=== PATIENT | female | born 1935 | race Two or more races ===

== ENCOUNTER 2025-05-03 00:36 | Inpatient (IN) | payer MEDICARE, OTHER ==
[2025-05-03] VITALS (13 sets, daily range): BP systolic 109–159; BP diastolic 38–99; PULSE 68–82; RESP 11–18; TEMP 97.3–98.1; O2SAT 92–100
[~2025-05-03] VITALS: Ht 152.4 cm; Wt 48.8 kg
[2025-05-03 01:05] LABS: Urine Bacteria None Seen /hpf (None Seen)
[2025-05-03 01:09] LABS: Basophils # (auto) 0.1 10 ^3/uL (0-0.2); Basophils % (auto) 0.7 % (0.0-2.0); Eosinophils # (auto) 0.2 10 ^3/uL (0-0.8); Eosinophils % (auto) 2.1 % (0.0-7.0); Hematocrit 45.7 % (36.0-46.0); Hemoglobin 15.3 g/dL (12.2-16.2); Lymphocytes # (auto) 2.9 10 ^3/uL (0.4-5.4); Lymphocytes % (auto) 24.6 % (10.0-50.0); Mean Corpuscular Hemoglobin 27.2 pg (28.0-32.0); Mean Corpuscular Hgb Conc. 33.4 g/dL (32.0-36.0); Mean Corpuscular Volume 81.3 fL (80.0-100.0); Monocytes # (auto) 0.6 10 ^3/uL (0-1.3); Monocytes % (auto) 5.4 % (0.0-12.0); Neutrophils # (auto) 7.8 10 ^3/uL (1.6-8.6); Neutrophils % (auto) 67.2 % (37.0-80.0); Platelet Count (auto) 272 10^3/uL (140-450); Red Blood Cells 5.62 10^6/uL (4.0-5.20); Red Cell Distribution Width 14.5 % (11.8-14.3); White Blood Cell 11.6 10^3/uL (4.4-10.8)
[2025-05-03 01:14] LABS: Urine Blood TRACE /uL (Negative); Urine Clarity Turbid (Clear); Urine Color Colorless (Yellow); Urine Protein, UAD TRACE (Negative); Urine Specific Gravity 1.027 (1.001-1.035); Urine Squamous Epithelial Cell MOD /hpf (<5); Urine Urobilinogen Normal (Negative); Urine WBC 276 /HPF (0-5); Urine WBC Clumps PRESENT /hpf (None Seen)
[2025-05-03 01:32] LABS: Albumin 4.4 g/dL (3.2-4.8); Anion Gap 8 (5-15); Aspartate Aminotransferase 14 U/L (13-40); BUN/Creatinine Ratio 11.2 (10.0-20.0); Bilirubin, Total 0.6 mg/dL (0.2-1.0); Blood Urea Nitrogen 10 mg/dL (9-23); Calcium 9.6 mg/dL (8.7-10.4); Carbon Dioxide 27 mmol/L (20-31); Chloride 102 mmol/L (98-107); Potassium 4.2 mmol/L (3.5-5.1); Sodium 137 mmol/L (136-145); Total Protein 7.4 g/dL (5.7-8.2)
--- NOTE | 2025-05-03 01:38 | DVH ---
CHEST RADIOGRAPH Indication: cp Technique: Single frontal view of the chest was obtained Comparison: None Findings/ IMPRESSION: Right basilar atelectasis versus developing airspace disease.
[2025-05-03 01:46] LABS: Alanine Aminotransferase < 9 U/L (7-40); Alkaline Phosphatase 141 U/L (46-116)
[2025-05-03 01:47] LABS: Glucose 442 mg/dL (74-106)
--- NOTE | 2025-05-03 02:42 | ED.PDOC ---
History of Present Illness HPI Comments 89-year-old female is brought in by daughter for evaluation following isolated episode of chest pain, with associated shortness of breath, an hour prior to arrival. Patient has a reported history of dementia, diabetes, and coronary stents in addition to having similar pain 5 days ago. No further associated s ymptoms during episode was endorsed, such as sweating, dizziness, nausea, or vomiting. Patient had a at home blood glucose reading of 435 and was given 30 units of Lantus at home prior to arrival. Chief Complaint: Chest Pain Time Seen by MD: 00:50 Reviewed Notes: Nurses Notes, Medications, Allergies Allergies: Coded Allergies: NO KNOWN ALLERGIES (Unverified , 05/03/25) Home Meds Reported Medications Atorvastatin Calcium (ATORVASTATIN CALCIUM) 20 Mg Tab, 1 TAB PO QPM, #30 TAB 5 Refills 05/03/25 Information Source: Relative (Child) Mode of Arrival: Ambulatory Severity: Moderate Timing: Hours Duration: Minutes Prehospital treatment: None Review of Systems: REVIEW OF SYSTEMS: No fever, no chills, or fatigue HEENT: No sore throat, no earache, no congestion, no neck pain. Cardiac: No chest pain. No palpitations. Lungs: No shortness of breath, no cough. GI: No nausea, no vomiting, no diarrhea, no constipation, no abdominal pain : No dysuria, frequency, or urgency. No hematuria. Musculoskeletal: No joint pain , no joint swelling, no extremity edema. Skin: No rash, no itching. Neuro: No headache, no dizziness, no weakness Vital Signs Vital Signs Date Time Temp Pulse Resp B/P (MAP) Pulse Ox O2 Delivery O2 Flow Rate FiO2 05/03/25 02:57 82 14 99 Room Air* 0 21 05/03/25 02:27 98.4 146/64 (91) 98.4 Physical Exam General: Awake, alert and oriented. No acute distress. Skin: Skin in warm, dry and intact. Appropriate color for ethnicity. HEENT: The head is normocephalic and atraumatic. Conjunctivae are clear without exudates or hemorrhage. Sclera is non-icteric. EOM are intact. No signs of nystagmus. Eyelids are normal in appearance without swelling or lesions. Oral mucosa is pink and moist Neck: The neck is supple with normal range of motion. No JVD. Cardiac: Heart rate is rapid; rhythm is regular. No murmurs, gallops, or rubs are auscultated. Respiratory: No signs of respiratory distress. Lung sounds are clear in all lobes bilaterally without rales, rhonchi, or wheezes. Abdominal: Abdomen is soft, non-tender without distention, guarding or rigidity. Bowel sounds are present and normoactive in all four quadrants. Extremities: Upper and lower extremities are atraumatic in appearance without deformity or edema. Neurological: The patient is awake, alert and oriented to person, place, and time with normal speech. Speech is clear. There is no facial asymmetry. Psychiatric: Appropriate mood and affect. Good judgement and insight. 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 Was a procedure done?: No EKG EKG #1: Pulse Rate (adult): 112 [place]: Normal Cardiac Rhythm: ST Block: LBBB Hypertrophy: None ST: Normal EKG #2: Pulse Rate (adult): 91 [place]: Normal Cardiac Rhythm: NSR Block: LBBB Hypertrophy: None ST: Normal Differential Dx Considerations may include: Differential diagnoses considered include acute ischemic coronary syndrome, aortic dissection, cardiac tamponade, mediastinitis, pulmonary embolus, pneumothorax, tension pneumothorax, esophageal rupture, coronary artery vasospasm, myocarditis, pericarditis, pneumonia, pulmonary edema, esophageal tear, pancreatitis, aortic stenosis, dilated cardiomyopathy, hypertrophic cardiomyopathy, mitral valve prolapse, malignancy, pleuritis, pneumomediastinum, primary pulmonary hypertension, cholecystitis, esophageal spasm, esophagus, gastritis, GERD, peptic ulcer disease, costochondritis, fibromyalgia, rib fracture, herpes zoster, radicular syndromes, thoracic outlet syndrome, somatization. X-Ray, Labs, Meds, VS Vital Signs Date Time Temp Pulse Resp B/P (MAP) Pulse Ox O2 Delivery O2 Flow Rate FiO2 05/03/25 02:57 82 14 99 Room Air* 0 21 05/03/25 02:42 91 05/03/25 02:27 98.4 82 14 146/64 (91) 99 98.4 05/03/25 01:45 91 05/03/25 00:43 112 05/03/25 00:40 98.4 107 18 169/74 (105) 95 98.4 Lab Test 05/03/25 03:25 05/03/25 01:49 05/03/25 00:55 05/03/25 00:50 Range/Units POC Glucose 306 H 70-106 mg/dl Troponin I High Sensitivity 137 *H 117 *H </=34 ng/L White Blood Count 11.6 H 4.4-10.8 10^3/uL Red Blood Count 5.62 H 4.0-5.20 10^6/uL Hemoglobin 15.3 12.2-16.2 g/dL Hematocrit 45.7 36.0-46.0 % Mean Corpuscular Volume 81.3 80.0-100.0 fL Mean Corpuscular Hemoglobin 27.2 L 28.0-32.0 pg Mean Corpuscular Hemoglobin Concent 33.4 32.0-36.0 g/dL Red Cell Distribution Width 14.5 H 11.8-14.3 % Platelet Count 272 140-450 10^3/uL Mean Platelet Volume 9.0 6.9-10.8 fL Neutrophils (%) (Auto) 67.2 37.0-80.0 % Lymphocytes (%) (Auto) 24.6 10.0-50.0 % Monocytes (%) (Auto) 5.4 0.0-12.0 % Eosinophils (%) (Auto) 2.1 0.0-7.0 % Basophils (%) (Auto) 0.7 0.0-2.0 % Neutrophils # (Auto) 7.8 1.6-8.6 10 ^3/uL Lymphocytes # (Auto) 2.9 0.4-5.4 10 ^3/uL Monocytes # (Auto) 0.6 0-1.3 10 ^3/uL Eosinophils # (Auto) 0.2 0-0.8 10 ^3/uL Basophils # (Auto) 0.1 0-0.2 10 ^3/uL Nucleated Red Blood Cells 0.0 % Prothrombin Time 10.7 9.3-11.8 sec Prothrombin Time INR 1.01 0.9-1.15 Activated Partial Thromboplast Time 26.2 24.5-34.5 SEC Sodium Level 137 136-145 mmol/L Potassium Level 4.2 3.5-5.1 mmol/L Chloride Level 102 98-107 mmol/L Carbon Dioxide Level 27 20-31 mmol/L Anion Gap 8 5-15 Blood Urea Nitrogen 10 9-23 mg/dL Creatinine 0.89 0.550-1.02 mg/dL Glomerular Filtration Rate Calc 62 >90 mL/min BUN/Creatinine Ratio 11.2 10.0-20.0 Serum Glucose 442 *H 74-106 mg/dL Hemoglobin A1c 10.9 H <5.7 % A1C Calcium Level 9.6 8.7-10.4 mg/dL Total Bilirubin 0.6 0.2-1.0 mg/dL Aspartate Amino Transferase (AST) 14 13-40 U/L Alanine Aminotransferase (ALT) < 9 7-40 U/L Alkaline Phosphatase 141 H 46-116 U/L B-Type Natriuretic Peptide 441.81 0-100 pg/mL Total Protein 7.4 5.7-8.2 g/dL Albumin 4.4 3.2-4.8 g/dL Urine Color Colorless Yellow Urine Clarity Turbid H Clear Urine pH 6.0 5.0-9.0 Urine Specific [place] 1.027 1.001-1.035 Urine Protein Trace H Negative Urine Ketones Negative Negative Urine Blood Trace H Negative /uL Urine Nitrite Negative Negative Urine Bilirubin Negative Negative Urine Urobilinogen Normal Negative mg/dL Urine Leukocyte Esterase 3+ Negative /uL Urine RBC 31 0 - 4 /hpf Urine WBC Clumps Present None Seen /hpf Urine Microscopic WBC 276 H 0-5 /HPF Urine Squamous Epithelial Cells Mod <5 /hpf Urine Bacteria None seen None Seen /hpf Urine Glucose 4+ H Normal mg/dL Current Medications Medications (Trade) Dose Ordered Sig/Davion Route Start Time Stop Time Status Last Admin Aspirin 324 mg ONCE ONCE PO 05/03/25 01:00 05/03/25 01:01 DC 05/03/25 02:45 Sodium Chloride 500 ml @ 500 mls/hr Q1H ONCE IV 05/03/25 02:00 05/03/25 02:59 DC 05/03/25 02:43 Heparin Sodium (Porcine) 2,880 units ONCE ONCE IV 05/03/25 02:45 05/03/25 02:46 DC 05/03/25 02:[address] [address] Ph: [phone] DIAGNOSTIC IMAGING Diagnostic Imaging Report : [id number] Signed PATIENT: JOAQUIN JIMENES ACCT: [id number] UNIT: [id number] : 1935 LOC: ER ROOM / BED: / AGE / SEX: 89 / F ADM STATUS: [facility] ER SERVICE ORDERING PHYSICIAN: MICHAEL ESQUIVEL MD PROCEDURE(s): CXR1 - CHEST XRAY 1 VIEW REASON: cp ORDER NUMBER(s): [id number], ACCESSION NUMBER(s): [id number] CHEST RADIOGRAPH Indication: cp Technique: Single frontal view of the chest was obtained Comparison: None Findings/ IMPRESSION: Right basilar atelectasis versus developing airspace disease. ATED BY: MILE KIM DO DICTATED DATE/TIME: 05/03/25135 SIGNED BY: MILE KIM DO SIGNED DATE/TIME: 05/03/25135 CC: Time of 1ST Reevaluation: 01:20 Reevaluation 1ST: Unchanged Patient Education/Counseling: Other (Patient has dementia) Family Education/Counseling: Treatment, Other (Need for admission) Departure 1 Departure Time of Disposition: 02:55 Impression: Primary Impression: Chest pain Additional Impression: NSTEMI (non-ST elevated myocardial infarction) Disposition: ADMITTED INPATIENT Condition: Stable Comments 89-year-old female history of coronary artery disease status post stenting presented to the emergency department with the daughter with chest pain. Serial troponins increasing. EKG shows no STEMI. Heparin bolus and drip initiated in the emergency department. Patient admitted to hospitalist service for further treatment, evaluation and monitoring. Extensive evaluation was performed in attempt to identify or rule out: (See differential diagnosis section) The following tests were ordered, and results were reviewed by me and discussed with patient: (See diagnostic results section) The following test were independently interpreted by me: EKG I reviewed and agreed with the following test results read by other providers: N /A I reviewed the following notes from the pt's past medical encounters: N/A Additional information was gathered from interviewing the following independent historians: Patient's daughter at bedside Discussion of management or test interpretation with external physician/other qualified health resident care director: N/A Addressed one or more chronic illnesses with severe exacerbation, progression, or side effects of treatment: Coronary artery disease, an acute or chronic illness that poses a threat to life or bodily function: NSTEMI Decision regarding hospitalization or escalation of hospital level of care: Risk and benefits of admission for further treatment of patient's condition was considered. Due to patient's current clinical condition, high risk of decline and poor outcome if discharged and need for further inpatient management and monitoring, patient will be admitted to the hospital. Drug therapy requiring intensive monitoring for toxicity: IV heparin Parenteral controlled substances: N/A Decision regarding elective major surgery with identified patient or procedure risk factors: N/A Decision regarding emergency major surgery: N/A Decision not to resuscitate or to de-escalate care because of poor prognosis: N/A Diagnosis or treatment significantly limited by social determinants of health: N/A Critical Care Note Critical Care Time?: No Stability Stability form required: No Heart Score Heart Score: Heart Score Response (Comments) Value History Moderate Suspicious 1 EKG Normal 0 Age >65 2 Risk Factors 1 or 2 risk factors 1 Troponin >3 x's Normal limit 2 Total 6 I personally scribed for MICHAEL ESQUIVEL MD ([email or web address]) on 05/03/25 at 02:42. Electronically submitted by Jorge Luis oMrales ([email or web address]). MICHAEL ESQUIVEL MD May 03, 2025 02:42
[2025-05-03] MEDS: SODIUM CHLORIDE 0.9% 500 ML IV ONE (02:43)
[2025-05-03] MEDS: ASPirin 81 mg TAB PO ONE (02:45)
[2025-05-03] MEDS: HEPARIN SODIUM (PORCINE) 5000 UNITS/ML 1ML VIAL IV ONE (02:46)
[2025-05-03 03:00] LABS: INR 1.01 (0.9-1.15); Partial Thromboplastin Time 26.2 SEC (24.5-34.5); Prothrombin Time 10.7 sec (9.3-11.8)
[2025-05-03] MEDS: cefTRIAXone 1GM/50ML D5W 50 ML IV SCH (03:30)
[2025-05-03] MEDS: FUROSEMIDE 40 MG/4 ML VIAL IV ONE (03:30)
[2025-05-03] MEDS ORDERED: NITROGLYCERIN 0.4 MG SL TAB SL PRN (03:30)
[2025-05-03] MEDS ORDERED: DEXTROSE (50%) 50ML SYRG IV PRN (03:30)
[2025-05-03] MEDS: PANTOPRAZOLE 40 MG/10 ML VIAL INJ IV ONE (03:30)
[2025-05-03] MEDS: HEPARIN DRIP/D5W 100UNITS/ML 250 ML IV SCH (03:45)
[2025-05-03] MEDS ORDERED: MORPHINE SULFATE 4 MG/ML SYR/VIAL IV PRN (04:00)
[2025-05-03] MEDS: ACCU-CHEK COMFORT CURVE STRIP VI SCH (04:00)
--- NOTE | 2025-05-03 04:39 | DVHHPRES ---
History of Present Illness Resident Creating Document: TAYA PETERSON RESIDENT History of Present Illness Patient is a 89-year-old female with a past medical history of dementia, coronary artery disease s/p PCI, congestive heart failure , insulin-dependent type 2 diabetes mellitus, bilateral decreased vision was brought to the ED after she complained of chest pain. Patient complained of chest pain in the left side and substernal reported that her "heart is hurting", nonradiating, occurred when she was at rest and was relieved on medication given in the hospital. Patient reported that while she had the chest pain she was not able to breathe. Patient denied any recent illness, cough, congestion, fever or chills, no sick contacts According to the daughter patient had OR about a year ago following which she underwent a PCI with 1 drug-eluting stent. 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 Heart. Past medical history: As per HPI Past surgical history: PCI with a 1 drug-eluting stent Social history: Patient lives with the daughter and does not smoke, drink alcohol, no drugs Home medications: Entresto 24-260.5 tab b.i.d., clopidogrel, metoprolol succinate 25, spironolactone 25, insulin Lantus 40 units in the morning and 30 units at night Review of Systems Review of Systems Patient is seen and examined at the bedside Denies any chest pain, shortness of breath, leg swelling No fever or chills, no cough Denies dysuria, abdominal pain Allergies: Coded Allergies: NO KNOWN ALLERGIES (Unverified , 05/03/25) Medications Current Medications Medications Dose Ordered Sig/Davion Route Start Time Stop Time Status Last Admin Dose Admin Heparin Sodium/ Dextrose 250 ml @ 5.808 mls/ hr Q24H IV 05/03/25 02:45 UNV Exam Vital Signs Vital Signs Date Time Temp Pulse Resp B/P (MAP) Pulse Ox O2 Delivery O2 Flow Rate FiO2 05/03/25 02:57 82 14 99 Room Air* 0 21 05/03/25 02:27 98.4 146/64 (91) 98.4 Exam Gen - no pallor, no icterus, no cyanosis, no clubbing, no LAD, no edema . Skin - Patients skin is warm and dry. HEENT - normocephalic, atraumatic, moist mucous membranes. Neck - full ROM, no LAD, no JVD Pulmonary - B/L equal breath sounds with minimal basilar crackles, no wheezing, no stridor. cardiovascular - regular S1,S2 heard, grade 3/6 systolic murmur heard at the TY B and the LUSB. capillary refill normal <2 secs. GI - soft, nontender abdomen. no hepatospleenomegaly. Bowel sounds normoactive Neurological - Patient is A/O X 2 . Bilateral upper extremity strength 4/5, bilateral lower extremity strength 4/5, no facial droop, normal speech, no tremor, no sensory deficiets. Labs/Xrays Labs Test 05/03/25 03:25 05/03/25 01:49 05/03/25 00:55 05/03/25 00:50 Range/Units POC Glucose 306 H 70-106 mg/dl Troponin I High Sensitivity 137 *H </=34 ng/L White Blood Count 11.6 H 4.4-10.8 10^3/uL Red Blood Count 5.62 H 4.0-5.20 10^6/uL Hemoglobin 15.3 12.2-16.2 g/dL Hematocrit 45.7 36.0-46.0 % Mean Corpuscular Volume 81.3 80.0-100.0 fL Mean Corpuscular Hemoglobin 27.2 L 28.0-32.0 pg Mean Corpuscular Hemoglobin Concent 33.4 32.0-36.0 g/dL Red Cell Distribution Width 14.5 H 11.8-14.3 % Platelet Count 272 140-450 10^3/uL Mean Platelet Volume 9.0 6.9-10.8 fL Neutrophils (%) (Auto) 67.2 37.0-80.0 % Lymphocytes (%) (Auto) 24.6 10.0-50.0 % Monocytes (%) (Auto) 5.4 0.0-12.0 % Eosinophils (%) (Auto) 2.1 0.0-7.0 % Basophils (%) (Auto) 0.7 0.0-2.0 % Neutrophils # (Auto) 7.8 1.6-8.6 10 ^3/uL Lymphocytes # (Auto) 2.9 0.4-5.4 10 ^3/uL Monocytes # (Auto) 0.6 0-1.3 10 ^3/uL Eosinophils # (Auto) 0.2 0-0.8 10 ^3/uL Basophils # (Auto) 0.1 0-0.2 10 ^3/uL Nucleated Red Blood Cells 0.0 % Prothrombin Time 10.7 9.3-11.8 sec Prothrombin Time INR 1.01 0.9-1.15 Activated Partial Thromboplast Time 26.2 24.5-34.5 SEC Sodium Level 137 136-145 mmol/L Potassium Level 4.2 3.5-5.1 mmol/L Chloride Level 102 98-107 mmol/L Carbon Dioxide Level 27 20-31 mmol/L Anion Gap 8 5-15 Blood Urea Nitrogen 10 9-23 mg/dL Creatinine 0.89 0.550-1.02 mg/dL Glomerular Filtration Rate Calc 62 >90 mL/min BUN/Creatinine Ratio 11.2 10.0-20.0 Serum Glucose 442 *H 74-106 mg/dL Calcium Level 9.6 8.7-10.4 mg/dL Total Bilirubin 0.6 0.2-1.0 mg/dL Aspartate Amino Transferase (AST) 14 13-40 U/L Alanine Aminotransferase (ALT) < 9 7-40 U/L Alkaline Phosphatase 141 H 46-116 U/L B-Type Natriuretic Peptide 441.81 0-100 pg/mL Total Protein 7.4 5.7-8.2 g/dL Albumin 4.4 3.2-4.8 g/dL Urine Color Colorless Yellow Urine Clarity Turbid H Clear Urine pH 6.0 5.0-9.0 Urine Specific [place] 1.027 1.001-1.035 Urine Protein Trace H Negative Urine Ketones Negative Negative Urine Blood Trace H Negative /uL Urine Nitrite Negative Negative Urine Bilirubin Negative Negative Urine Urobilinogen Normal Negative mg/dL Urine Leukocyte Esterase 3+ Negative /uL Urine RBC 31 0 - 4 /hpf Urine WBC Clumps Present None Seen /hpf Urine Microscopic WBC 276 H 0-5 /HPF Urine Squamous Epithelial Cells Mod <5 /hpf Urine Bacteria None seen None Seen /hpf Urine Glucose 4+ H Normal mg/dL Assessment/Plan Assessment/Plan Acute chest pain ?ACS, likely NSTEMI type 1 H/o coronary artery disease s/p PCI about a year ago Possible heart failure with reduced ejection fraction, ?exacerbation - ECG shows T-wave inversions in lead 2 3 AVF, likely LBBB - troponins elevated - PASQUALE 5 points - heart score 6 points - loaded with aspirin and atorvastatin - heparin drip - cardiology consulted - echocardiogram pending - chest x-ray shows pulmonary congestion, on Lasix - on Entresto 0.5 tab b.i.d., metoprolol succinate 25 UTI likely acute cystitis - on ceftriaxone - urine culture pending Uncontrolled insulin-dependent type 2 diabetes mellitus with a hyperglycemia - insulin Lantus 30 units b.i.d. - moderate insulin sliding scale q.4 hours PUD prophylaxis: Protonix DVT prophylaxis: On heparin drip Goals of care discussed with the patient and her daughter for over 20 7 minutes. Full code Time spent: 41 minutes Plan discussed with Dr. Bates Plan discussed with: Patient, Daughter My Orders Orders - TAYA PETERSON RESIDENT Procedure Category Date Status Time Admit ADMIT 05/03/25 Verified 03:27 Nitroglycerin PHA 05/03/25 Verified Sublingual (Ntrostat 03:30 Morphine Sulfate PHA 05/03/25 Verified Injection 03:30 Oxygen By Nasal RT 05/03/25 Verified Cannula 03:27 Stat Ekg For Chest [facility] 05/03/25 Verified Pain 03:27 Notify Md Of Changes [facility] 05/03/25 Verified From Base 03:27 Pie Baker For [facility] 05/03/25 Verified 24 Hours 03:27 Emergency Dysrhythmia [facility] 05/03/25 Verified Protocol 03:27 Rhythm Strips Once [facility] 05/03/25 Verified Every Shift 03:27 Echo 2d Mode Cardiac US 05/03/25 Verified DOP 03:27 Rapid Influenza A&B LAB 05/03/25 Verified 03:27 Covid19 Antigen [facility] 05/03/25 Verified Glucose Blood PHA 05/03/25 Verified (Accu-Chek Comfort 04:00 Moderate Insulin Ss PHA 05/03/25 Verified 04:00 Dextrose 50% Syringe PHA 05/03/25 Verified 03:30 Insulin Lantus PHA 05/03/25 Verified (Glargine) (Lantus) 10:00 Insulin Lantus PHA 05/03/25 Verified (Glargine) (Lantus) 22:00 Ceftriaxone Ivpb PHA 05/03/25 Verified Rocephin 03:30 Urine Bacterial DAWNA 05/03/25 Verified Culture 03:27 Furosemide Injection PHA 05/03/25 Verified (Lasix Injection) 03:30 Sacubitril-Valsartan PHA 05/03/25 Verified (Entresto 24-26 Mg 10:00 Metoprolol Xl PHA 05/03/25 Verified Succinate (Toprol Xl) 10:00 Clopidogrel Bisulfate PHA 05/03/25 Verified (Plavix) 10:00 Furosemide Injection PHA 05/04/25 Verified (Lasix Injection) 06:00 Pantoprazole PHA 05/03/25 Verified (Protonix) 10:00 Pantoprazole PHA 05/03/25 Verified (Protonix) 03:30 * Cardiology Consult CONS 05/03/25 Verified 03:27 Date of Service: May 03, 2025 Billing Provider: FARHAD BATES MD Common Visit Codes: 32073-[id number] INP/OBS CARE (HIGH) Secondary Visit Codes: [id number] CARE PLAN 30 MINUTES TAYA PETERSON RESIDENT May 03, 2025 04:39
[2025-05-03] MEDS: ATORVASTATIN 20 MG TAB PO ONE (04:45)
[2025-05-03] MEDS: InsuLIN REG 1unit/0.01ml Soln (100units/ml) SC SCH ×2 (04:59→16:18)
[2025-05-03 05:25] LABS: Rapid Influenza A Negative (Negative); Rapid Influenza B Negative (Negative)
[2025-05-03 05:26] LABS: COVID19 ANTIGEN SOFIA FIA NEGATIVE (NEGATIVE)
--- NOTE | 2025-05-03 08:26 | DVHCONRES ---
KE STARKS RESIDENT 05/03/25 0826: Date Seen: May 03, 2025 Resident Creating Document: KE STARKS RESIDENT Referring Physician Dr. Erazo Reason for Consultation NSTEMI History of Present Illness Patient is an 89-year-old female with past medical history of dementia, CAD s/p PCI in September 2024, heart failure with moderately reduced ejection fraction 40%, type 2 diabetes insulin dependent, who was brought in by daughter due to chest pain. According to the daughter at bedside, last night on 05/02/2025 patient started complaining of "heart pain" with associated shortness of breath, patient was lying down at the time of onset of chest pain. Per daughter, patient had similar symptoms 1 year ago with arm numbness at the time she was diagnosed with NSTEMI and underwent PCI x1 FABIANO. Patient's daughter reports good compliance with home medication. On review of systems patient denies any f indings. Patient is AO x1 which is her baseline, at baseline patient is ambulatory with a walker. EKG showed diffuse ST depressions, serial troponins were 117, 137, 306, 961. Patient will undergo left heart catheterization today. Past Medical History dementia, CAD s/p PCI in September 2024, heart failure with moderately reduced ejection fraction 40%, type 2 diabetes insulin dependent Past Surgical History PCI in September 2024, right hip replacement Social History Smoking: Denies Alcohol: Denies Drugs: Denies Allergies: Coded Allergies: NO KNOWN ALLERGIES (Unverified , 05/03/25) Home Meds Reported Medications Atorvastatin Calcium (ATORVASTATIN CALCIUM) 20 Mg Tab, 1 TAB PO QPM, #30 TAB 5 Refills 05/03/25 Current Medications Current Medications Medications (Trade) Dose Ordered Sig/Davion Route PRN Reason Start Time Stop Time Status Last Admin Heparin Sodium/ Dextrose 250 ml @ 6 mls/hr Q24H IV 05/03/25 03:45 05/03/25 03:45 Nitroglycerin (Ntrostat Sublingual) 0.4 mg Q5MINP PRN SL FOR CHEST PAIN 05/03/25 03:30 Morphine Sulfate 2 mg Q30M PRN IV FOR CHEST PAIN 05/03/25 04:00 Diagnostic Test (Pha) (Accu-Chek Comfort Curve T) 1 strip IQ4HR 05/03/25 04:00 05/03/25 04:00 Insulin Human Regular (InsuLIN R) IQ4HR SC 05/03/25 04:00 05/03/25 04:59 Dextrose 50 ml UD PRN IV Blood Sugar LESS THAN 60 05/03/25 03:30 Insulin Glargine (Lantus) 30 units DAILY@1000 SC 05/03/25 10:00 Insulin Glargine (Lantus) 30 units HS SC 05/03/25 22:00 Ceftriaxone Sodium 50 ml @ 100 mls/hr DAILY@09 IV 05/03/25 03:30 Sacubitril/ Valsartan (Entresto 24-26 Mg tab) 0.5 tab BID PO 05/03/25 10:00 Metoprolol Succinate (Toprol Xl) 25 mg DAILY PO 05/03/25 10:00 Clopidogrel Bisulfate (Plavix) 75 mg DAILY PO 05/03/25 10:00 Furosemide (Lasix Injection) 40 mg DAILY IV 05/04/25 06:00 Pantoprazole Sodium (Protonix) 40 mg DAILY IV 05/03/25 10:00 Atorvastatin Calcium (Lipitor) 40 mg HS PO 05/03/25 22:00 Review of Systems Patient seen and examined at bedside. Patient is alert and oriented to person only but responding to all questions. Accurate review of systems could not be completed. Patient denied everything. Eyes: No Pain, No Vision change, No Conjunctivae inflammation, No Eyelid inflammation, No Other, No Redness ENT: No Ear pain, No Ear discharge, No Nose pain, No Nose discharge, No Nose congestion, No Mouth pain, No Mouth swelling, No Throat pain, No Throat swelling, No Other Cardiovascular: No Chest Pain, No Palpitations, No Orthopnea, No Paroxysmal No Dyspnea, No Edema, No Lt Headedness, No Other Respiratory: No Cough, No Dry, No Shortness of breath, No SOB with exertion, No Wheezing, No Hemoptysis, No Pleuritic Pain, No Sputum, No Other Gastrointestinal: No Nausea, No Vomiting, No Abdominal Pain, No Diarrhea, No Constipation, No Melena, No Hematochezia, No Other Genitourinary: No Dysuria, No Frequency, No Incontinence, No Hematuria, No Retention, No Other Musculoskeletal: No other, No neck pain, No shoulder pain, No arm pain, No back pain, No hand pain, No leg pain, No foot pain Skin: No Rash, No Lesions, No Jaundice, No Bruising, No Other Vital Signs Vital Signs Date Time Temp Pulse Resp B/P (MAP) Pulse Ox O2 Delivery O2 Flow Rate FiO2 05/03/25 05:53 97.9 68 16 120/99 (106) 92 97.9 05/03/25 02:57 Room Air* 0 21 Physical Exam General Appearance: Cooperative. Well developed. Well nourished. NAD. Moist mucous membranes Head Exam: Normal inspection Neck Exam: Normal inspection. Non-tender. Normal alignment Pulmonary/Respiratory: Chest non-tender. Clear bilateral breath sounds, no crackles, no wheezing. Cardiovascular/Chest: Regular rate and rhythm. Murmur heard. No JVD. Abdominal Exam: Normal bowel sounds. Soft. normal abdomen, no visible veins, Nontender. No hepatospenomegaly. No masses Lower extremities: Negative lower extremity edema Neuro/Mental Status: A&O x1. Coherent. Skin Exam: Normal inspection. Normal color. Warm. Dry Labs/Diagnostic Data Labs Test 05/03/25 04:47 05/03/25 04:40 05/03/25 03:53 05/03/25 00:55 Range/Units POC Glucose 257 H 70-106 mg/dl Influenza Type A Antigen Negative Negative Influenza Type B Antigen Negative Negative SARS-CoV-2 Antigen (Rapid) Negative NEGATIVE Troponin I High Sensitivity 306 *H </=34 ng/L White Blood Count 11.6 H 4.4-10.8 10^3/uL Red Blood Count 5.62 H 4.0-5.20 10^6/uL Hemoglobin 15.3 12.2-16.2 g/dL Hematocrit 45.7 36.0-46.0 % Mean Corpuscular Volume 81.3 80.0-100.0 fL Mean Corpuscular Hemoglobin 27.2 L 28.0-32.0 pg Mean Corpuscular Hemoglobin Concent 33.4 32.0-36.0 g/dL Red Cell Distribution Width 14.5 H 11.8-14.3 % Platelet Count 272 140-450 10^3/uL Mean Platelet Volume 9.0 6.9-10.8 fL Neutrophils (%) (Auto) 67.2 37.0-80.0 % Lymphocytes (%) (Auto) 24.6 10.0-50.0 % Monocytes (%) (Auto) 5.4 0.0-12.0 % Eosinophils (%) (Auto) 2.1 0.0-7.0 % Basophils (%) (Auto) 0.7 0.0-2.0 % Neutrophils # (Auto) 7.8 1.6-8.6 10 ^3/uL Lymphocytes # (Auto) 2.9 0.4-5.4 10 ^3/uL Monocytes # (Auto) 0.6 0-1.3 10 ^3/uL Eosinophils # (Auto) 0.2 0-0.8 10 ^3/uL Basophils # (Auto) 0.1 0-0.2 10 ^3/uL Nucleated Red Blood Cells 0.0 % Prothrombin Time 10.7 9.3-11.8 sec Prothrombin Time INR 1.01 0.9-1.15 Activated Partial Thromboplast Time 26.2 24.5-34.5 SEC Sodium Level 137 136-145 mmol/L Potassium Level 4.2 3.5-5.1 mmol/L Chloride Level 102 98-107 mmol/L Carbon Dioxide Level 27 20-31 mmol/L Anion Gap 8 5-15 Blood Urea Nitrogen 10 9-23 mg/dL Creatinine 0.89 0.550-1.02 mg/dL Glomerular Filtration Rate Calc 62 >90 mL/min BUN/Creatinine Ratio 11.2 10.0-20.0 Serum Glucose 442 *H 74-106 mg/dL Calcium Level 9.6 8.7-10.4 mg/dL Total Bilirubin 0.6 0.2-1.0 mg/dL Aspartate Amino Transferase (AST) 14 13-40 U/L Alanine Aminotransferase (ALT) < 9 7-40 U/L Alkaline Phosphatase 141 H 46-116 U/L B-Type Natriuretic Peptide 441.81 0-100 pg/mL Total Protein 7.4 5.7-8.2 g/dL Albumin 4.4 3.2-4.8 g/dL Test 05/03/25 00:50 Range/Units Urine Color Colorless Yellow Urine Clarity Turbid H Clear Urine pH 6.0 5.0-9.0 Urine Specific Sharon 1.027 1.001-1.035 Urine Protein Trace H Negative Urine Ketones Negative Negative Urine Blood Trace H Negative /uL Urine Nitrite Negative Negative Urine Bilirubin Negative Negative Urine Urobilinogen Normal Negative mg/dL Urine Leukocyte Esterase 3+ Negative /uL Urine RBC 31 0 - 4 /hpf Urine WBC Clumps Present None Seen /hpf Urine Microscopic WBC 276 H 0-5 /HPF Urine Squamous Epithelial Cells Mod <5 /hpf Urine Bacteria None seen None Seen /hpf Urine Glucose 4+ H Normal mg/dL Assessment NSTEMI type 1 History of NSTEMI with PCI to mid left circumflex in September 2024 Heart failure with moderately reduced ejection fraction, EF 40%, RVSP 37 mmHg in September 2024 Dementia with AO x1 at baseline Uncontrolled type 2 diabetes, insulin dependent Acute complicated UTI Severe hypomagnesemia Plan: Echo from September 2024: Moderately reduced EF 40% in a global fashion, grade 1 diastolic dysfunction. [id number] elevated RVSP 37 mmHg. Moderately dilated left atrium. Aortic valve mildly thickened and sclerotic. Mitral valve has severe mitral annular calcification following the posterior annulus, mild mitral valve stenosis with a mean gradient of 6 mmHg. Moderate mitral regurgitation. Mild TR. Continue heparin drip per pharmacy IV Magnesium rider Atorvastatin, plavix Continue metoprolol, Entresto IV Lasix 40mg Patient will undergo left heart catheterization today; details of the procedure with risks and benefits explained to patient's daughter at bedside. Optimize blood glucose control Rest of the management as per primary team Thank you so much for the opportunity to consult on your patient. Cardiology team will follow the patient. In case of any questions or concerns please feel free to reach out. Plan discussed with Dr. Laura Plan discussed with: Patient, Daughter, Other (RN) Visit Coding Cardiology RES Date of Service: May 03, 2025 Billing Provider: MEREDITH LAURA MD Cardiology Common Codes: [id number] INP/OBS CARE (High) MEREDITH LAURA MD 05/03/25 1427: Allergies: Coded Allergies: NO KNOWN ALLERGIES (Unverified , 05/03/25) Home Meds Reported Medications Atorvastatin Calcium (ATORVASTATIN CALCIUM) 20 Mg Tab, 1 TAB PO QPM, #30 TAB 5 Refills 05/03/25 Plan/Recommendation high risk pt , nstemi LBBB on ecg [facility] images personally reviewed pt has some dementia, high risk for procedure family wishes to proceed [facility] dania given acute SD Plan discussed with: Patient KE STARKS RESIDENT May 03, 2025 08:26 MEREDITH LAURA MD May 03, 2025 14:27
[2025-05-03 08:45] LABS: HDL Cholesterol 54 mg/dL (40-59)
[2025-05-03 09:12] LABS: Cholesterol 229 mg/dL (< 200); LDL Cholesterol 146 mg/dL (< 100); Triglycerides 296 mg/dL (< 150)
[2025-05-03 09:13] LABS: Magnesium < 0.5 mg/dL (1.6-2.6)
[2025-05-03] MEDS ORDERED: ATOR20TA50 PO (09:32)
[2025-05-03] MEDS: PANTOPRAZOLE 40 MG/10 ML VIAL INJ IV SCH (10:00)
[2025-05-03] MEDS: METOPROLOL SUCCINATE XL 50 MG TAB PO SCH (10:00)
[2025-05-03] MEDS: SACUBITRIL-VALSARTAN 24mg/26mg TAB PO SCH (10:00)
[2025-05-03] MEDS ORDERED: MAGNESIUM SULFATE 1GM/100ML 100 ML IV SCH (10:00)
[2025-05-03] MEDS: CLOPIDOGREL BISULFATE 75 MG TAB PO SCH (10:00)
[2025-05-03] MEDS ORDERED: INSULIN LANTUS (GLARGINE) 1 /0.01ml (100units/ml) SC SCH ×2 (10:00→22:00)
[2025-05-03] MEDS: MAGNESIUM SULFATE 1GM/100ML 100 ML IV SCH ×2 (10:12→16:00)
[2025-05-03 10:28] LABS: INR 1.04 (0.9-1.15); Partial Thromboplastin Time 47.4 SEC (24.5-34.5)
[2025-05-03] MEDS ORDERED: HEPARIN DRIP/D5W 100UNITS/ML 250 ML IV SCH (10:45)
[2025-05-03] MEDS: IODIXANOL 320MG/ML 100ML BTL IV ONE ×3 (12:22→13:55)
[2025-05-03] MEDS: MIDAZOLAM HCL 2MG/2ML 2ml VIAL (1mg/ml) ONE (12:24)
[2025-05-03] MEDS: LIDOCAINE 2%HCL (LOCAL ANESTH.) INJ 20ML MDV ONE (12:24)
[2025-05-03] MEDS: fentaNYL CITRATE 100 MCG/2 ML VL ONE (12:24)
[2025-05-03] MEDS: VERAPAMIL 2.5MG/ML INJ 2ML VIAL IV ONE (12:24)
--- NOTE | 2025-05-03 12:24 | DVHPNRES ---
Progress Note Date Seen: May 03, 2025 Resident Creating Document: ERIN GROSS RESIDENT Has the PT tested + for MRSA If YES, has PT been informed?: No Medical Necessity Reason Pt with a Central, PICC or Fol: No Subjective Review of Systems Patient is a 89-year-old female with a past medical history of dementia, coronary artery disease s/p PCI, congestive heart failure , insulin-dependent type 2 diabetes mellitus, bilateral decreased vision was brought to the ED after she complained of chest pain. Patient complained of chest pain in the left side and substernal reported that her "heart is hurting", nonradiating, occurred when she was at rest and was relieved on medication given in the hospital. Patient reported that while she had the chest pain she was not able to breathe. Patient denied any recent illness, cough, congestion, fever or chills, no sick contacts According to the daughter patient had AL about a year ago following which she underwent a PCI with 1 drug-eluting stent. Her coordinator of placement is Dr. Heart. Past medical history: As per HPI Past surgical history: PCI with a 1 drug-eluting stent Social history: Patient lives with the daughter and does not smoke, drink alcohol, no drugs Home medications: Entresto 24-260.5 tab b.i.d., clopidogrel, metoprolol succinate 25, spironolactone 25, insulin Lantus 40 units in the morning and 30 units at night 05/03/2025: patient was dx with NSTEMI, troponing were trending high, patient was taken to the catheter builder and PTCA and IVL shockwave lithotripsy to 99% ISR CX stent was done, UTI was also found, ceftriaxone IV is given Objective vital signs Vital Sign Date Time Temp Pulse Resp B/P (MAP) Pulse Ox O2 Delivery O2 Flow Rate FiO2 05/03/25 10:00 79 10 112/52 (72) 96 05/03/25 08:00 98.2 98.2 05/03/25 02:57 Room Air* 0 21 medications Current Medications Medications Dose Ordered Sig/Davion Route Start Time Stop Time Status Last Admin Dose Admin Nitroglycerin 0.4 mg Q5MINP PRN SL 05/03/25 03:30 Diagnostic Test (Pha) 1 strip IQ4HR 05/03/25 04:00 05/03/25 08:00 1 STRIP Dextrose 50 ml UD PRN IV 05/03/25 03:30 Ceftriaxone Sodium 50 ml @ 100 mls/hr DAILY@09 IV 05/03/25 03:30 05/03/25 09:36 100 MLS/HR Sacubitril/ Valsartan 0.5 tab BID PO 05/03/25 10:00 Metoprolol Succinate 25 mg DAILY PO 05/03/25 10:00 Clopidogrel Bisulfate 75 mg DAILY PO 05/03/25 10:00 Furosemide 40 mg DAILY IV 05/04/25 06:00 Pantoprazole Sodium 40 mg DAILY IV 05/03/25 10:00 Atorvastatin Calcium 40 mg HS PO 05/03/25 22:00 Heparin Sodium/ Dextrose 250 ml @ 8 mls/hr Q24H IV 05/03/25 10:45 Examination Gen - no pallor, no icterus, no cyanosis, no clubbing, no LAD, no edema . Skin - Patients skin is warm and dry. HEENT - normocephalic, atraumatic, moist mucous membranes. Neck - full ROM, no LAD, no JVD Pulmonary - B/L equal breath sounds with minimal basilar crackles, no wheezing, no stridor. cardiovascular - regular S1,S2 heard, grade 3/6 systolic murmur heard at the RUSB and the LUSB. capillary refill normal <2 secs. GI - soft, nontender abdomen. no hepatospleenomegaly. Bowel sounds normoactive Neurological - Patient is A/O X 2 . Bilateral upper extremity strength 4/5, bilateral lower extremity strength 4/5, no facial droop, normal speech, no tremor, no sensory deficits. laboratory and microbiology Laboratory Tests 05/03/25 00:55 Test 05/03/25 00:55 Range/Units Serum Glucose 442 *H 74-106 mg/dL Problem List/Assessment/Plan Problem List/Assessment/Plan sp PTCA and IVL shockwave lithotripsy to 99% ISR CX stent Acute chest pain ACS, likely NSTEMI type 1 H/o coronary artery disease s/p PCI about a year ago Possible heart failure with reduced ejection fraction, ?exacerbation -Aspirin and clopidogrel -Metoprolol 25 mg daily - DC heparin drip - cardiology on board - echocardiogram pending - chest x-ray shows pulmonary congestion, on Lasix - on Entresto 0.5 tab b.i.d UTI likely acute cystitis - on ceftriaxone - urine culture pending Uncontrolled insulin-dependent type 2 diabetes mellitus with a hyperglycemia - Due to episode of hypoglycemia and NPO, was dc insulin for today just sliding scale Hypomagnesemia Mg IV PUD prophylaxis: Protonix DVT prophylaxis: Enoxaparin Goals of care discussed with the patient and her daughter for over 20 7 minutes. Full code Time spent: 41 minutes Plan discussed with Dr. Gordillo Plan discussed with: Patient, Other (rn) My Orders My Orders Orders - ERIN GROSS RESIDENT Procedure Category Date Status Time Free T3 LAB 05/03/25 Verified 12:23 Free T4 (Free LAB 05/03/25 Verified Thyroxine) 12:23 Date of Service: May 03, 2025 Billing Provider: LEONCIO GORDILLO MD Common Visit Codes: [id number] INP/OBS CARE(HIGH) ERIN GROSS RESIDENT May 03, 2025 12:24 LEONCIO GORDILLO MD May 04, 2025 14:51
[2025-05-03] MEDS: ANGIOMAX 250 MG VIAL IV ONE (12:25)
[2025-05-03] MEDS: SODIUM CHL 0.9% 50 ML ONE (12:25)
--- NOTE | 2025-05-03 12:26 | ECG ---
[facility] Test Date: 2025-05-03 Test Time: 00:43:53 Pat Name: JOAQUIN FLAHERTY Department: ed Room: 0277T Gender: F Vp Of Product: SANDRITA : 1935 Requested By: MICHAEL ESQUIVEL Order Number: [id number] Reading MD: Senthil Heart Measurements Intervals [place] Rate: 112 P: 77 FL: 130 QRS: 54 QRSD: 154 T: 239 QT: 345 QTc: 471 Interpretive Statements Sinus tachycardia Left bundle branch block Electronically Signed On 05-05-2025 20:56:42 PDT by Senthil Heart Please click the below link to view image of tracing.
--- NOTE | 2025-05-03 12:26 | ECG ---
[facility] Test Date: 2025-05-03 Test Time: 01:45:20 Pat Name: JOAQUIN FLAHERTY Department: ED Room: 0277T Gender: F Oil Boiler: SANDRITA : 1935 Requested By: MICHAEL ESQUIVEL Order Number: [id number] Reading MD: Senthil Heart Measurements Intervals [place] Rate: 91 P: 69 VT: 132 QRS: 47 QRSD: 144 T: 238 QT: 377 QTc: 464 Interpretive Statements Sinus rhythm Left bundle branch block Electronically Signed On 05-05-2025 20:57:12 PDT by Senthil Heart Please click the below link to view image of tracing.
--- NOTE | 2025-05-03 12:26 | ECG ---
[facility] Test Date: 2025-05-03 Test Time: 03:44:31 Pat Name: JOAQUIN FLAHERTY Department: ED Room: 0277T Gender: F Pie Dough Roller: MONICA : 1935 Requested By: MICHAEL ESQUIVEL Order Number: [id number] Reading MD: Senthil Heart Measurements Intervals [place] Rate: 91 P: 110 TX: 183 QRS: 48 QRSD: 147 T: 218 QT: 376 QTc: 463 Interpretive Statements Sinus rhythm Left bundle branch block Electronically Signed On 05-05-2025 20:57:32 PDT by Senthil Heart Please click the below link to view image of tracing.
[2025-05-03 13:20] LABS: Free T3 3.74 pg/mL (2.3-4.2)
[2025-05-03 13:21] LABS: Free T4 (Free Thyroxine) 1.3 ng/dL (0.89-1.76)
--- NOTE | 2025-05-03 13:44 | DVHOP2 ---
Operative Report Operative Report CARDIAC TOOL CRIB LEAD PROCEDURE REPORT [place], [place] Date of Service: 05/03/25 Street Light Wirer: Meredith Laura MD PROCEDURES PERFORMED: Coronary angiogram, left heart catheterization, conscious sedation administration and supervision, less than 15 minutes; fluoroscopy use and interpretation.[id number] mins, PTCA1 vessel, intravasculr lithotripsy 1 vessel, acute SC intervention, US guided vascular access saved to pacs system PREOPERATIVE DIAGNOSES: NSTEMI POSTOP DIAGNOSIS: NSTEMI DESCRIPTION OF PROCEDURE: The patient or appropriate family signed informed consent understanding the risks, benefits and alternatives of the procedure, they wished to proceed. The patient was brought to the cardiac landscape laborer in n.p.o. state. The patient was prepped in a sterile fashion. Sedation was used per cardiac cath protocol. I administered 2 mL of 2% lidocaine to the right wrist. there was no pulse and it was quite weak. With an antegrade front wall puncture. I cannulated the right radial artery using US guidance but couldnt wire it well enouh given heavy calcium and spasm. . SO i changed to Femoral approach and gave 5 cc of lidocaine given to groin. WIth US guidance, i cannulated the RCFA which was veyr weak pulse. the vessel was patent but quite diseased on US. I placed a 6F sheath. angio showed appropriate arteriotomy site but 50% REINFORCED IRONWORKER lesion . Next, a - 6F JR4, JL4 and XB 3 and were used for coronary angiogram and LVEDP measurement and pressure pullback. At the completion of procedure, all guides and wires were removed, and there were no immediate complications. FINDINGS: RCA: Moderate vessel off the right sinus of Valsalva, there is no severe flow limiting stenosis. mild diffuse plaque LEFT MAIN: Moderate size left main, it bifurcates into LAD and circumflex. mild diffuse plaque. CIRCUMFLEX: Moderate caliber vessel coming off the left main . mid CX has a 99% lesion ISR. 50% post stent lesion unchanged from previous cath. LAD: LAD is a moderate caliber vessel coming of the left main. moderate diffuse non critical cad INTERVENTION: We decided to proceed with coronary intervention. I started with a 6F __XB3__ Guide to intubate the LM __. Angiomax bolus and gtt was started. Following this, I decided to wire using an .014 BMW across the culprit lesion with ease. At this time, we performed balloon angioplasty with a _2.5 x 15 mm balloon up to 12 atms with 3 inflations each 15 seconds and then i took a 3.0 x 12 mm balloon by by Tendr IVL balloon up to __2 __ ATMS over __15__ seconds with __10 pulses each for total of 40 pulses__ delivered. Following this, angio showed <10% residual stenosis. PASQUALE pre/post: 2./3 CONCLUSIONS: 1. sp PTCA and IVL shockwave lithotripsy to 99% ISR CX stent PLAN: Aggressive risk factor modification and medical management for the patient. DAPT x 1 year uninterrupted MEREDITH LAURA MD May 03, 2025 13:44
[2025-05-03] MEDS: CLOPIDOGREL BISULFATE 75 MG TAB ONE (13:55)
[2025-05-03] MEDS: MAGNESIUM SULFATE 1GM/100ML 100 ML IV ONE (14:39)
[2025-05-03] MEDS: ATORVASTATIN 20 MG TAB PO SCH (20:01)
[2025-05-03] MEDS: TEMAZEPAM 15 MG CAP PO ONE (21:48)
[2025-05-04 05:00] VITALS: BP 100/49; PULSE 72; RESP 17; TEMP 97.5; O2SAT 95
[2025-05-04] MEDS ORDERED: FUROSEMIDE 40 MG/4 ML VIAL IV SCH (06:00)
[2025-05-04 06:21] LABS: Basophils # (auto) 0 10 ^3/uL (0-0.2); Basophils % (auto) 0.5 % (0.0-2.0); Eosinophils # (auto) 0.2 10 ^3/uL (0-0.8); Eosinophils % (auto) 2.5 % (0.0-7.0); Hematocrit 41.8 % (36.0-46.0); Lymphocytes # (auto) 1.4 10 ^3/uL (0.4-5.4); Lymphocytes % (auto) 17.5 % (10.0-50.0); Mean Corpuscular Hemoglobin 27.2 pg (28.0-32.0); Mean Corpuscular Hgb Conc. 33.4 g/dL (32.0-36.0); Mean Corpuscular Volume 81.2 fL (80.0-100.0); Monocytes # (auto) 0.6 10 ^3/uL (0-1.3); Monocytes % (auto) 7.9 % (0.0-12.0); Neutrophils # (auto) 5.6 10 ^3/uL (1.6-8.6); Neutrophils % (auto) 71.6 % (37.0-80.0); Nucleated Red Blood Cells % 0.1 %; Platelet Count (auto) 236 10^3/uL (140-450); Red Blood Cells 5.15 10^6/uL (4.0-5.20); Red Cell Distribution Width 13.9 % (11.8-14.3); White Blood Cell 7.8 10^3/uL (4.4-10.8)
[2025-05-04 08:00] VITALS: PULSE 69
[2025-05-04 09:00] VITALS: BP 120/70; PULSE 73; RESP 17; TEMP 97.1; O2SAT 94
[2025-05-04 09:18] LABS: Potassium 3.5 mmol/L (3.5-5.1); Sodium 144 mmol/L (136-145)
[2025-05-04 09:19] LABS: Anion Gap 9 (5-15); Calcium 8.8 mg/dL (8.7-10.4); Carbon Dioxide 26 mmol/L (20-31)
[2025-05-04] MEDS: ENOXAPARIN SOD 40 MG/0.4 ML SYRINGE SC SCH (09:24)
[2025-05-04] MEDS: ASPirin 81 mg TAB PO SCH (09:24)
[2025-05-04 09:25] LABS: Blood Urea Nitrogen 8 mg/dL (9-23); Magnesium 2.3 mg/dL (1.6-2.6)
[2025-05-04] MEDS: SPIRONOLACTONE 25 MG TAB PO SCH (09:25)
[2025-05-04 09:26] LABS: Chloride 109 mmol/L (98-107)
[2025-05-04 09:27] LABS: Glucose 45 mg/dL (74-106)
--- NOTE | 2025-05-04 09:30 | DVHPN2 ---
Consult Progress Note Date Seen: May 04, 2025 Subjective Review of Systems: CVS:Normal, RESPIRATORY:Normal, NEURO:Normal Objective vital signs Vital Sign Date Time Temp Pulse Resp B/P (MAP) Pulse Ox O2 Delivery O2 Flow Rate FiO2 05/04/25 07:45 Room Air* 0 21 05/04/25 05:00 97.5 72 17 100/49 (66) 95 97.5 Total Intake and Output 05/03/25 05/03/25 05/04/25 15:00 23:00 07:00 Intake Total 50 ml 790 ml 500 ml Balance 50 ml 790 ml 500 ml medications Current Medications Medications Dose Ordered Sig/Davion Route Start Time Stop Time Status Last Admin Dose Admin Nitroglycerin 0.4 mg Q5MINP PRN SL 05/03/25 03:30 Dextrose 50 ml UD PRN IV 05/03/25 03:30 Cancel Ceftriaxone Sodium 50 ml @ 100 mls/hr DAILY@09 IV 05/03/25 03:30 05/03/25 09:36 100 MLS/HR Sacubitril/ Valsartan 0.5 tab BID PO 05/03/25 10:00 05/03/25 20:01 0.5 TAB Metoprolol Succinate 25 mg DAILY PO 05/03/25 10:00 Clopidogrel Bisulfate 75 mg DAILY PO 05/03/25 10:00 Pantoprazole Sodium 40 mg DAILY IV 05/03/25 10:00 Atorvastatin Calcium 40 mg HS PO 05/03/25 22:00 05/03/25 20:01 40 MG Enoxaparin Sodium 40 mg DAILY SC 05/04/25 10:00 Insulin Human Regular ACHS SC 05/03/25 17:00 05/03/25 19:56 4 UNITS Aspirin 81 mg DAILY PO 05/04/25 10:00 Spironolactone 12.5 mg DAILY PO 05/04/25 10:00 Examination: LUNGS:Normal, CVS:Normal, NEURO:Normal laboratory and microbiology Laboratory Tests 05/04/25 04:08 Test 05/04/25 04:08 Range/Units Serum Glucose Pending Problem List/Assessment/Plan Problem List/Assessment/Plan NSTEMI Type 1 with in-stent restenosis of the LCx status post shockwave lithotripsy Coronary artery disease status post PTCA of the mid LCx on 09/2024 Acute on chronic decompensated HFrEF Ischemic cardiomyopathy Dementia with AO x1 at baseline Uncontrolled type 2 diabetes, insulin dependent Acute complicated UTI Severe hypomagnesemia Assessment/Plan (Dr. Guo) * Transthoracic echocardiogram from September 2024: Moderately reduced EF 40% in a global fashion, grade 1 diastolic dysfunction. [id number] elevated RVSP 37 mmHg. Moderately dilated left atrium. Aortic valve mildly thickened and sclerotic. Mitral valve has severe mitral annular calcification following the posterior annulus, mild mitral valve stenosis with a mean gradient of 6 mmHg. Moderate mitral regurgitation. Mild TR. * Repeat transthoracic echocardiogram reading pending at this time * GDMT for CHF as tolerated. SGLT2i held given frequent UTIs * Dual-antiplatelet therapy and lipid-lowering agent * Close blood glucose level monitoring given frequent hypoglycemic events * Mediterranean diet and risk factor modifications Patient to follow-up with Dr. Heart on 05/14/2025 for echocardiogram results and further management. We will sign off at this time. Thank you for allowing us to participate in this patient's care. Please call if you have any questions or concerns. This medical document was created using an electronic medical record system with voice recognition software and computerized dictation system. Although this document has been carefully reviewed, there might still be some phonetic and typographical errors. Occasional wrong-word or ``sound-alike substitutions may have occurred due to the inherent limitations of voice recognition software. These areas are purely typographical due to imperfections of the software programs and do not reflect any compromise in the patient's medical care. Please read the chart carefully and recognize, using context, where these substitutions have occurred. Plan discussed with: Patient, Other Date of Service: May 04, 2025 Billing Provider: ERIS BARRETO Cardiology Common Codes: [id number] INP/OBS CARE(Mod) ERIS BARRETO May 04, 2025 09:30
[2025-05-04] MEDS: POTASSIUM CHL 20 Meq TABLET PO ONE (11:01)
[2025-05-04] MEDS: InsuLIN REG 1unit/0.01ml Soln (100units/ml) SC ONE (11:33)
--- NOTE | 2025-05-04 11:39 | DVHSR ---
APPROVED REPORT EXAM: LIMITED Two-dimensional and M-mode echocardiogram with Doppler and color Doppler. Blood Pressure: 120/99 mmHg INDICATION LV assessment RISK FACTORS Height: 5'0", Weight: 106 DIMENSIONS LVDd (3.8-5.7cm)LA (2D)4.1 (1.9-4.0cm)Aortic Root (2.0-3.7cm) EF (%) 26.0 (55-70%)Rt. Atrium4.2 (1.9-4.0cm)Asc. Aorta cm Mitral Valve MitralMitral Stenosis E wave1.44m/sMV Mean GR.6mmHg A wave1.64m/sMV Peak GR.12mmHg E/A ratio0.92D MVAcm2 DECEL [id number] 1/2 Cetp03lp IVRTmsDop MVA2.48cm2 Aortic Valve Aortic ValveAortic Stenosis V10.76m/Wayne Mean GR.9mmHg V21.93m/Wayne Peak GR.15mmHg LVOT Diameter1.9 (1.8-2.4cm)Doppler AVA1.12cm2 Tricuspid Valve TR Velocity3.03m/s [id number] Other Information Quality : Technically LimitedRhythm : Technically limited study due to body habitus. Conclusion lvef 30% dilated LV moderate mitral stenosis, mean gradient of 6 mmgh sever MAC moderate to severe mitral regurg noted aortic sclerosis
--- NOTE | 2025-05-04 15:31 | DVHPNRES ---
Progress Note Date Seen: May 04, 2025 Resident Creating Document: ERIN GROSS RESIDENT Has the PT tested + for MRSA If YES, has PT been informed?: No Medical Necessity Reason Pt with a Central, PICC or Fol: No Subjective Review of Systems Patient is a 89-year-old female with a past medical history of dementia, coronary artery disease s/p PCI, congestive heart failure , insulin-dependent type 2 diabetes mellitus, bilateral decreased vision was brought to the ED after she complained of chest pain. Patient complained of chest pain in the left side and substernal reported that her "heart is hurting", nonradiating, occurred when she was at rest and was relieved on medication given in the hospital. Patient reported that while she had the chest pain she was not able to breathe. Patient denied any recent illness, cough, congestion, fever or chills, no sick contacts According to the daughter patient had PA about a year ago following which she underwent a PCI with 1 drug-eluting stent. Her healthcare financial analyst is Dr. Heart. Past medical history: As per HPI Past surgical history: PCI with a 1 drug-eluting stent Social history: Patient lives with the daughter and does not smoke, drink alcohol, no drugs Home medications: Entresto 24-260.5 tab b.i.d., clopidogrel, metoprolol succinate 25, spironolactone 25, insulin Lantus 40 units in the morning and 30 units at night 05/03/2025: patient was dx with NSTEMI, troponing were trending high, patient was taken to the factory laborer and PTCA and IVL shockwave lithotripsy to 99% ISR CX stent was done, UTI was also found, ceftriaxone IV is given 05/04/2025: Today am glucose 45 but later during the day glucose 361, we are going to restart half the dose she is using at home: lantus 15 ui Objective vital signs Vital Sign Date Time Temp Pulse Resp B/P (MAP) Pulse Ox O2 Delivery O2 Flow Rate FiO2 05/04/25 09:28 83 120/70 05/04/25 09:00 97.1 17 94 97.1 05/04/25 07:45 Room Air* 0 21 Total Intake and Output 05/03/25 05/03/25 05/04/25 15:00 23:00 07:00 Intake Total 50 ml 790 ml 500 ml Balance 50 ml 790 ml 500 ml medications Current Medications Medications Dose Ordered Sig/Davion Route Start Time Stop Time Status Last Admin Dose Admin Nitroglycerin 0.4 mg Q5MINP PRN SL 05/03/25 03:30 Dextrose 50 ml UD PRN IV 05/03/25 03:30 Cancel Ceftriaxone Sodium 50 ml @ 100 mls/hr DAILY@09 IV 05/03/25 03:30 05/04/25 09:24 100 MLS/HR Sacubitril/ Valsartan 0.5 tab BID PO 05/03/25 10:00 05/04/25 09:28 0.5 TAB Metoprolol Succinate 25 mg DAILY PO 05/03/25 10:00 05/04/25 09:28 25 MG Clopidogrel Bisulfate 75 mg DAILY PO 05/03/25 10:00 05/04/25 09:25 75 MG Pantoprazole Sodium 40 mg DAILY IV 05/03/25 10:00 05/04/25 09:24 40 MG Atorvastatin Calcium 40 mg HS PO 05/03/25 22:00 05/03/25 20:01 40 MG Enoxaparin Sodium 40 mg DAILY SC 05/04/25 10:00 05/04/25 09:24 40 MG Insulin Human Regular ACHS SC 05/03/25 17:00 05/03/25 19:56 4 UNITS Aspirin 81 mg DAILY PO 05/04/25 10:00 05/04/25 09:24 81 MG Spironolactone 12.5 mg DAILY PO 05/04/25 10:00 05/04/25 09:25 12.5 MG Examination Gen - no pallor, no icterus, no cyanosis, no clubbing, no LAD, no edema . Skin - Patients skin is warm and dry. HEENT - normocephalic, atraumatic, moist mucous membranes. Neck - full ROM, no LAD, no JVD Pulmonary - B/L equal breath sounds with minimal basilar crackles, no wheezing, no stridor. cardiovascular - regular S1,S2 heard, grade 3/6 systolic murmur heard at the RUSB and the LUSB. capillary refill normal <2 secs. GI - soft, nontender abdomen. no hepatospleenomegaly. Bowel sounds normoactive Neurological - Patient is A/O X 2 . Bilateral upper extremity strength 4/5, bilateral lower extremity strength 4/5, no facial droop, normal speech, no tremor, no sensory deficits. laboratory and microbiology Laboratory Tests 05/04/25 04:08 Test 05/04/25 04:08 Range/Units Serum Glucose 45 *L 74-106 mg/dL Microbiology Date/Time Source Procedure Growth Status 05/03/25 00:50 Urine - Midstream Clean Catch Urine Culture - Preliminary Resulted Problem List/Assessment/Plan Problem List/Assessment/Plan sp PTCA and IVL shockwave lithotripsy to 99% ISR CX stent Acute chest pain ACS, likely NSTEMI type 1 H/o coronary artery disease s/p PCI about a year ago Possible heart failure with reduced ejection fraction, ?exacerbation -Aspirin and clopidogrel -Metoprolol 25 mg daily - cardiology on board - echocardiogram: lvef 30%, dilated LV, moderate mitral stenosis, severe MAC, moderate to severe mitral regurg noted - on Entresto 0.5 tab b.i.d UTI likely acute cystitis - on ceftriaxone - urine culture: contamination Uncontrolled insulin-dependent type 2 diabetes mellitus with a hyperglycemia Today am glucose 45 but later during the day glucose 361, we are going to restart half the dose she is using at home: lantus 15 ui mild ISS please check sugars every 4h Hypomagnesemia Mg IV given PUD prophylaxis: Protonix DVT prophylaxis: Enoxaparin Goals of care discussed with the patient and her daughter for over 20 7 minutes. Full code Time spent: 41 minutes Plan discussed with Dr. Gordillo Plan discussed with: Patient, Other (rn) My Orders My Orders Orders - ERIN GROSS Procedure Category Date Status Time Enoxaparin Sodium PHA 05/04/25 In Process (Lovenox) 10:00 Insulin R (Human) PHA 05/03/25 In Process (Insulin R) 17:00 Date of Service: May 04, 2025 Billing Provider: LEONCIO GORDILLO MD Common Visit Codes: [id number] INP/OBS CARE(HIGH) ERIN GROSS RESIDENT May 04, 2025 15:31 LEONCIO GORDILLO MD May 06, 2025 11:47
[2025-05-04] MEDS ORDERED: INSLANTI SC (18:14)
[2025-05-04] MEDS ORDERED: DEXTROSE (50%) 50ML SYRG IV PRN (18:15)
[2025-05-04] MEDS: ACCU-CHEK COMFORT CURVE STRIP VI SCH (19:50)
[2025-05-04] MEDS: InsuLIN REG 1unit/0.01ml Soln (100units/ml) SC SCH (19:54)
[2025-05-04 20:00] VITALS: PULSE 72; PULSE 76; RESP 17; O2SAT 99
[2025-05-04 21:00] VITALS: BP 123/47; PULSE 76; RESP 17; TEMP 98.2; O2SAT 97
[2025-05-04] MEDS: MELATONIN 5 MG TAB PO ONE (22:52)
[2025-05-04] MEDS: INSULIN LANTUS (GLARGINE) 1 /0.01ml (100units/ml) SC SCH (22:53)
[2025-05-05] VITALS (7 sets, daily range): BP systolic 97–111; BP diastolic 39–66; PULSE 64–79; RESP 16–18; TEMP 97.6–98.3; O2SAT 96–99
[2025-05-05 06:32] LABS: Alanine Aminotransferase < 9 U/L (7-40); Albumin 3.6 g/dL (3.2-4.8); Alkaline Phosphatase 95 U/L (46-116); Anion Gap 9 (5-15); Aspartate Aminotransferase 14 U/L (13-40); BUN/Creatinine Ratio 21.8 (10.0-20.0); Blood Urea Nitrogen 17 mg/dL (9-23); Calcium 9.1 mg/dL (8.7-10.4); Carbon Dioxide 25 mmol/L (20-31); Chloride 106 mmol/L (98-107); Glucose 153 mg/dL (74-106); Potassium 4.3 mmol/L (3.5-5.1); Sodium 140 mmol/L (136-145); Total Protein 5.8 g/dL (5.7-8.2)
[2025-05-05 06:33] LABS: Bilirubin, Total 0.8 mg/dL (0.2-1.0)
[2025-05-05] MEDS: INSULIN LANTUS (GLARGINE) 1 /0.01ml (100units/ml) SC SCH (11:58)
--- NOTE | 2025-05-05 15:44 | DVHPNRES ---
Progress Note Date Seen: May 05, 2025 Resident Creating Document: ERIN GROSS RESIDENT Has the PT tested + for MRSA If YES, has PT been informed?: No Medical Necessity Reason Pt with a Central, PICC or Fol: No Subjective Review of Systems Patient is a 89-year-old female with a past medical history of dementia, coronary artery disease s/p PCI, congestive heart failure , insulin-dependent type 2 diabetes mellitus, bilateral decreased vision was brought to the ED after she complained of chest pain. Patient complained of chest pain in the left side and substernal reported that her "heart is hurting", nonradiating, occurred when she was at rest and was relieved on medication given in the hospital. Patient reported that while she had the chest pain she was not able to breathe. Patient denied any recent illness, cough, congestion, fever or chills, no sick contacts According to the daughter patient had NE about a year ago following which she underwent a PCI with 1 drug-eluting stent. Her visual artist is Dr. Heart. Past medical history: As per HPI Past surgical history: PCI with a 1 drug-eluting stent Social history: Patient lives with the daughter and does not smoke, drink alcohol, no drugs Home medications: Entresto 24-260.5 tab b.i.d., clopidogrel, metoprolol succinate 25, spironolactone 25, insulin Lantus 40 units in the morning and 30 units at night 05/03/2025: patient was dx with NSTEMI, troponing were trending high, patient was taken to the slab miller operator and PTCA and IVL shockwave lithotripsy to 99% ISR CX stent was done, UTI was also found, ceftriaxone IV is given 05/04/2025: Today am glucose 45 but later during the day glucose 361, we are going to restart half the dose she is using at home: lantus 15 ui 05/05/2025: hypoglycemia am again, Dr Valdez, cage tender, consulted, he recomended: lantus 8ui am, lispro 3 tid, lispro moderate sliding scale Objective vital signs Vital Sign Date Time Temp Pulse Resp B/P (MAP) Pulse Ox O2 Delivery O2 Flow Rate FiO2 05/05/25 13:00 98.0 65 16 110/39 (62) 98 98.0 05/05/25 08:02 Room Air* 0 21 Total Intake and Output 05/04/25 05/04/25 05/05/25 15:00 23:00 07:00 Intake Total 50 ml 350 ml Balance 50 ml 350 ml medications Current Medications Medications Dose Ordered Sig/Davion Route Start Time Stop Time Status Last Admin Dose Admin Nitroglycerin 0.4 mg Q5MINP PRN SL 05/03/25 03:30 Dextrose 50 ml UD PRN IV 05/03/25 03:30 Cancel Ceftriaxone Sodium 50 ml @ 100 mls/hr DAILY@09 IV 05/03/25 03:30 05/05/25 09:28 100 MLS/HR Sacubitril/ Valsartan 0.5 tab BID PO 05/03/25 10:00 05/05/25 09:26 0.5 TAB Metoprolol Succinate 25 mg DAILY PO 05/03/25 10:00 05/05/25 09:27 25 MG Clopidogrel Bisulfate 75 mg DAILY PO 05/03/25 10:00 05/05/25 09:27 75 MG Pantoprazole Sodium 40 mg DAILY IV 05/03/25 10:00 05/05/25 09:26 40 MG Atorvastatin Calcium 40 mg HS PO 05/03/25 22:00 05/04/25 22:00 40 MG Enoxaparin Sodium 40 mg DAILY SC 05/04/25 10:00 05/05/25 09:26 40 MG Aspirin 81 mg DAILY PO 05/04/25 10:00 05/05/25 09:28 81 MG Spironolactone 12.5 mg DAILY PO 05/04/25 10:00 05/05/25 09:27 12.5 MG Diagnostic Test (Pha) 1 strip IQ4HR 05/04/25 20:00 05/05/25 11:56 1 STRIP Dextrose 50 ml UD PRN IV 05/04/25 18:15 Insulin Human Lispro give on top of stand... AC SC 05/05/25 17:00 Insulin Human Lispro 3 units AC SC 05/05/25 17:00 Insulin Glargine 8 units QAM SC 05/06/25 07:00 Examination Gen - no pallor, no icterus, no cyanosis, no clubbing, no LAD, no edema . Skin - Patients skin is warm and dry. HEENT - normocephalic, atraumatic, moist mucous membranes. Neck - full ROM, no LAD, no JVD Pulmonary - B/L equal breath sounds with minimal basilar crackles, no wheezing, no stridor. cardiovascular - regular S1,S2 heard, grade 3/6 systolic murmur heard at the RUSB and the LUSB. capillary refill normal <2 secs. GI - soft, nontender abdomen. no hepatospleenomegaly. Bowel sounds normoactive Neurological - Patient is A/O X 2 . Bilateral upper extremity strength 4/5, bilateral lower extremity strength 4/5, no facial droop, normal speech, no tremor, no sensory deficits. laboratory and microbiology Laboratory Tests 05/05/25 05:22 05/04/25 04:08 Test 05/05/25 05:22 Range/Units Serum Glucose 153 H 74-106 mg/dL Microbiology Date/Time Source Procedure Growth Status 05/03/25 00:50 Urine - Midstream Clean Catch Urine Culture - Final Complete Problem List/Assessment/Plan Problem List/Assessment/Plan sp PTCA and IVL shockwave lithotripsy to 99% ISR CX stent Acute chest pain ACS, likely NSTEMI type 1 H/o coronary artery disease s/p PCI about a year ago Possible heart failure with reduced ejection fraction, ?exacerbation -Aspirin and clopidogrel -Metoprolol 25 mg daily - cardiology on board - echocardiogram: lvef 30%, dilated LV, moderate mitral stenosis, severe MAC, moderate to severe mitral regurg noted - on Entresto 0.5 tab b.i.d UTI likely acute cystitis - on ceftriaxone - urine culture: contamination Uncontrolled insulin-dependent type 2 diabetes mellitus with a hyperglycemia Dr Valdez, cage tender, consulted, he recommended: lantus 8ui am, lispro 3 tid, lispro moderate sliding scale please check sugars every 4h Hypomagnesemia Mg IV given PUD prophylaxis: Protonix DVT prophylaxis: Enoxaparin Goals of care discussed with the patient and her daughter for over 20 7 minutes. Full code Time spent: 41 minutes Plan discussed with Dr. Childs Plan discussed with: Patient, Other (rn) My Orders My Orders Orders - ERIN GROSS Procedure Category Date Status Time Glucose Blood PHA 05/04/25 In Process (Accu-Chek Comfort 20:00 Dextrose 50% Syringe PHA 05/04/25 In Process 18:15 * Endocrinology CONS 05/05/25 Transmitted Consult 11:13 Date of Service: May 05, 2025 Billing Provider: LEONCIO CHILDS MD Common Visit Codes: [id number] INP/OBS CARE(HIGH) ERIN GROSS RESIDENT May 05, 2025 15:44 LEONCIO CHILDS MD May 06, 2025 11:56
[2025-05-05] MEDS: INSULIN LISPRO (HUMAN) 100 UNITS/ML ML SC SCH ×2 (17:00→17:02)
[2025-05-05] MEDS: clonazePAM 0.5 MG TAB PO ONE (22:47)
[2025-05-06 01:00] VITALS: BP 99/27; PULSE 79; RESP 16; TEMP 97.5; O2SAT 94
[2025-05-06 05:00] VITALS: BP 104/44; PULSE 75; RESP 17; TEMP 97.6; O2SAT 97
[2025-05-06] MEDS: INSULIN LANTUS (GLARGINE) 1 /0.01ml (100units/ml) SC SCH (07:54)
[2025-05-06 08:00] VITALS: PULSE 67
[2025-05-06 08:47] VITALS: BP 113/52; PULSE 79; RESP 18; TEMP 97.5; O2SAT 95
[2025-05-06 11:08] LABS: Anion Gap 10 (5-15); Carbon Dioxide 24 mmol/L (20-31); Potassium 4.1 mmol/L (3.5-5.1); Sodium 142 mmol/L (136-145)
[2025-05-06 11:10] LABS: Calcium 8.8 mg/dL (8.7-10.4)
[2025-05-06] MEDS ORDERED: CLOP75TA70 PO (11:13)
[2025-05-06] MEDS ORDERED: ATOR20TA50 PO (11:13)
[2025-05-06] MEDS ORDERED: METO-6 PO (11:13)
[2025-05-06] MEDS ORDERED: SPIR25TA PO (11:13)
[2025-05-06] MEDS ORDERED: ASPI-325 PO (11:13)
[2025-05-06] MEDS ORDERED: INSU1INJ19 SC (11:13)
[2025-05-06] MEDS ORDERED: SACU1TAB PO (11:13)
[2025-05-06] MEDS ORDERED: INSU100I4 SC (11:13)
[2025-05-06 11:14] LABS: BUN/Creatinine Ratio 24.6 (10.0-20.0); Blood Urea Nitrogen 15 mg/dL (9-23); Glucose 75 mg/dL (74-106)
[2025-05-06 11:16] LABS: Chloride 108 mmol/L (98-107)
[2025-05-06] MEDS: ACCU-CHEK COMFORT CURVE STRIP VI SCH (11:21)
[2025-05-06 11:44] VITALS: BP 113/52
--- NOTE | 2025-05-06 18:00 | DVHDSRES ---
Discharge Summary Date of Admission Resident Creating Document: ROJAS ERIN Richards RESIDENT May 03, 2025 at 03:27 Date of Discharge: May 06, 2025 Admitting Diagnosis sp PTCA and IVL shockwave lithotripsy to 99% ISR CX stent Labs/Diagnostic Data: Laboratory Results Test 05/06/25 11:08 05/06/25 08:02 05/05/25 05:22 05/04/25 04:08 POC Glucose 370 mg/dl (70-106) Sodium Level 142 mmol/L (136-145) Potassium Level 4.1 mmol/L (3.5-5.1) Chloride Level 108 mmol/L (98-107) Carbon Dioxide Level 24 mmol/L (20-31) Anion Gap 10 (5-15) Blood Urea Nitrogen 15 mg/dL (9-23) Creatinine 0.61 mg/dL (0.550-1.02) Glomerular Filtration Rate Calc 85 mL/min (>90) BUN/Creatinine Ratio 24.6 (10.0-20.0) Serum Glucose 75 mg/dL (74-106) Calcium Level 8.8 mg/dL (8.7-10.4) Total Bilirubin 0.8 mg/dL (0.2-1.0) Aspartate Amino Transferase (AST) 14 U/L (13-40) Alanine Aminotransferase (ALT) < 9 U/L (7-40) Alkaline Phosphatase 95 U/L (46-116) Total Protein 5.8 g/dL (5.7-8.2) Albumin 3.6 g/dL (3.2-4.8) White Blood Count 7.8 10^3/uL (4.4-10.8) Red Blood Count 5.15 10^6/uL (4.0-5.20) Hemoglobin 14.0 g/dL (12.2-16.2) Hematocrit 41.8 % (36.0-46.0) Mean Corpuscular Volume 81.2 fL (80.0-100.0) Mean Corpuscular Hemoglobin 27.2 pg (28.0-32.0) Mean Corpuscular Hemoglobin Concent 33.4 g/dL (32.0-36.0) Red Cell Distribution Width 13.9 % (11.8-14.3) Platelet Count 236 10^3/uL (140-450) Mean Platelet Volume 9.4 fL (6.9-10.8) Neutrophils (%) (Auto) 71.6 % (37.0-80.0) Lymphocytes (%) (Auto) 17.5 % (10.0-50.0) Monocytes (%) (Auto) 7.9 % (0.0-12.0) Eosinophils (%) (Auto) 2.5 % (0.0-7.0) Basophils (%) (Auto) 0.5 % (0.0-2.0) Neutrophils # (Auto) 5.6 10 ^3/uL (1.6-8.6) Lymphocytes # (Auto) 1.4 10 ^3/uL (0.4-5.4) Monocytes # (Auto) 0.6 10 ^3/uL (0-1.3) Eosinophils # (Auto) 0.2 10 ^3/uL (0-0.8) Basophils # (Auto) 0 10 ^3/uL (0-0.2) Nucleated Red Blood Cells 0.1 % Magnesium Level 2.3 mg/dL (1.6-2.6) Test 05/03/25 09:58 05/03/25 08:42 05/03/25 04:40 05/03/25 03:53 Prothrombin Time 11.0 sec (9.3-11.8) Prothrombin Time INR 1.04 (0.9-1.15) Activated Partial Thromboplast Time 47.4 SEC (24.5-34.5) Troponin I High Sensitivity 961 ng/L (</=34) Free Thyroxine (T4) Calculated 1.30 ng/dL (0.89-1.76) Free Triiodothyronine (T3) pg/mL 3.74 pg/mL (2.3-4.2) Influenza Type A Antigen Negative (Negative) Influenza Type B Antigen Negative (Negative) SARS-CoV-2 Antigen (Rapid) Negative (NEGATIVE) Triglycerides Level 296 mg/dL (< 150) Cholesterol Level 229 mg/dL (< 200) LDL Cholesterol 146 mg/dL (< 100) HDL Cholesterol 54 mg/dL (40-59) Thyroid Stimulating Hormone (TSH) 6.34 uIU/mL (0.55-4.78) Test 05/03/25 00:55 05/03/25 00:50 Hemoglobin A1c 10.9 % A1C (<5.7) B-Type Natriuretic Peptide 441.81 pg/mL (0-100) Urine Color Colorless (Yellow) Urine Clarity Turbid (Clear) Urine pH 6.0 (5.0-9.0) Urine Specific [place] 1.027 (1.001-1.035) Urine Protein Trace (Negative) Urine Ketones Negative (Negative) Urine Blood Trace /uL (Negative) Urine Nitrite Negative (Negative) Urine Bilirubin Negative (Negative) Urine Urobilinogen Normal mg/dL (Negative) Urine Leukocyte Esterase 3+ /uL (Negative) Urine RBC 31 /hpf (0 - 4) Urine WBC Clumps Present /hpf (None Seen) Urine Microscopic WBC 276 /HPF (0-5) Urine Squamous Epithelial Cells Mod /hpf (<5) Urine Bacteria None seen /hpf (None Seen) Urine Glucose 4+ mg/dL (Normal) Other Laboratory Tests 05/06/25 08:02 05/04/25 04:08 Brief Hx & Hospital Course: Patient is a 89-year-old female with a past medical history of dementia, coronary artery disease s/p PCI, congestive heart failure , insulin-dependent type 2 diabetes mellitus, bilateral decreased vision was brought to the ED after she complained of chest pain. Patient complained of chest pain in the left side and substernal reported that her "heart is hurting", nonradiating, occurred when she was at rest and was relieved on medication given in the hospital. Patient reported that while she had the chest pain she was not able to breathe. Patient denied any recent illness, cough, congestion, fever or chills, no sick contacts According to the daughter patient had NE about a year ago following which she underwent a PCI with 1 drug-eluting stent. Her engineering mechanic is Dr. Heart. Past medical history: As per HPI Past surgical history: PCI with a 1 drug-eluting stent Social history: Patient lives with the daughter and does not smoke, drink alcohol, no drugs Home medications: Entresto 24-260.5 tab b.i.d., clopidogrel, metoprolol succinate 25, spironolactone 25, insulin Lantus 40 units in the morning and 30 units at night 05/03/2025: patient was dx with NSTEMI, troponing were trending high, patient was taken to the mushroom laborer and PTCA and IVL shockwave lithotripsy to 99% ISR CX stent was done, UTI was also found, ceftriaxone IV is given 05/04/2025: Today am glucose 45 but later during the day glucose 361, we are going to restart half the dose she is using at home: lantus 15 ui 05/05/2025: hypoglycemia am again, Dr Valdez, soda fountain clerk, consulted, he recomended: lantus 8ui am, lispro 3 tid, lispro moderate sliding scale 05/06/2025: BS better, vega fu appt in DC clinic, dc with home meds and insulin Gen - no pallor, no icterus, no cyanosis, no clubbing, no LAD, no edema . Skin - Patients skin is warm and dry. HEENT - normocephalic, atraumatic, moist mucous membranes. Neck - full ROM, no LAD, no JVD Pulmonary - B/L equal breath sounds with minimal basilar crackles, no wheezing, no stridor. cardiovascular - regular S1,S2 heard, grade 3/6 systolic murmur heard at the RUSB and the LUSB. capillary refill normal <2 secs. GI - soft, nontender abdomen. no hepatospleenomegaly. Bowel sounds normoactive Neurological - Patient is A/O X 2 . Bilateral upper extremity strength 4/5, bilateral lower extremity strength 4/5, no facial droop, normal speech, no tremor, no sensory deficits. Case discussed with Dr Childs Consults/Reason for consult cardiology due to NSTEMI and soda fountain clerk due to uncontrolled diabetes Operations or Procedures Sports Editor: Carlos Guo MD PROCEDURES PERFORMED: Coronary angiogram, left heart catheterization, conscious sedation administration and supervision, less than 15 minutes; fluoroscopy use and interpretation.[id number] mins, PTCA1 vessel, intravasculr lithotripsy 1 vessel, acute NE intervention, US guided vascular access saved to pacs system PREOPERATIVE DIAGNOSES: NSTEMI POSTOP DIAGNOSIS: NSTEMI DESCRIPTION OF PROCEDURE: The patient or appropriate family signed informed consent understanding the risks, benefits and alternatives of the procedure, they wished to proceed. The patient was brought to the cardiac mushroom laborer in n.p.o. state. The patient was prepped in a sterile fashion. Sedation was used per cardiac cath protocol. I administered 2 mL of 2% lidocaine to the right wrist. there was no pulse and it was quite weak. With an antegrade front wall puncture. I cannulated the right radial artery using US guidance but couldnt wire it well enouh given heavy calcium and spasm. . SO i changed to Femoral approach and gave 5 cc of lidocaine given to groin. WIth US guidance, i cannulated the RCFA which was veyr weak pulse. the vessel was patent but quite diseased on US. I placed a 6F sheath. angio showed appropriate arteriotomy site but 50% DUMB WAITER OPERATOR lesion . Next, a - 6F JR4, JL4 and XB 3 and were used for coronary angiogram and LVEDP measurement and pressure pullback. At the completion of procedure, all guides and wires were removed, and there were no immediate complications. FINDINGS: RCA: Moderate vessel off the right sinus of Valsalva, there is no severe flow limiting stenosis. mild diffuse plaque LEFT MAIN: Moderate size left main, it bifurcates into LAD and circumflex. mild diffuse plaque. CIRCUMFLEX: Moderate caliber vessel coming off the left main . mid CX has a 99% lesion ISR. 50% post stent lesion unchanged from previous cath. LAD: LAD is a moderate caliber vessel coming of the left main. moderate diffuse non critical cad INTERVENTION: We decided to proceed with coronary intervention. I started with a 6F __XB3__ Guide to intubate the LM __. Angiomax bolus and gtt was started. Following this, I decided to wire using an .014 BMW across the culprit lesion with ease. At this time, we performed balloon angioplasty with a _2.5 x 15 mm balloon up to 12 atms with 3 inflations each 15 seconds and then i took a 3.0 x 12 mm balloon by by [employer] IVL balloon up to __2 __ ATMS over __15__ seconds with __10 pulses each for total of 40 pulses__ delivered. Following this, angio showed <10% residual stenosis. PASQUALE pre/post: 2./3 CONCLUSIONS: 1. sp PTCA and IVL shockwave lithotripsy to 99% ISR CX stent Condition at Discharge: Stable Final Diagnosis/Problems List sp PTCA and IVL shockwave lithotripsy to 99% ISR CX stent Acute chest pain ACS, likely NSTEMI type 1 H/o coronary artery disease s/p PCI about a year ago heart failure with reduced ejection fraction, non exacerbation UTI likely acute cystitis Uncontrolled insulin-dependent type 2 diabetes mellitus with a hyperglycemia Hypomagnesemia Discharge Disposition: Home Discharge Instruct/Medications Diet: Consistent carbohydrate, Cardiac 2g Na,low cholest Activity: Light activity Follow Up/Referral: dc clinic in 1 wwek for fu in change in insulin schedule Medications: see prescription Discharge Statement: "Patient was advised to return to the ER or call 911 if any headaches, dizziness, shortness of breath, chest pain, abdominal pain, bleeding, fevers, or worsening of medical condition. Patient was counseled about treatment plan, medications, possible side effects, patientverbalized understanding. All questions were answered to the best of my ability. This discharge took greater then 30 minutes in planning, reviewing documentation, counseling the patient, and discussing with other team members." ASSESSMENT ASSESSMENT Assessment sp PTCA uncontrolled diabetes ERIN GROSS RESIDENT May 06, 2025 18:00
== END 2025-05-06 12:48 | disposition home or self-care (01) | DRG 325 ==
LOC: ER 00:36 → OVERFLOW 03:27 → TELE-WESTW 15:15
PROVIDERS: ADMIT Student in an Organized Health Care Education/Training Program; ATTEND Emergency Medicine
PROC: 4A023N7 Measurement of Cardiac Sampling and Pressure, Left Heart, Percutaneous Approach (ICD-10-PCS; principal; 2025-05-03)
PROC: 02F03ZZ Fragmentation in Coronary Artery, One Artery, Percutaneous Approach (ICD-10-PCS; 2025-05-03)
PROC: 02703ZZ Dilation of Coronary Artery, One Artery, Percutaneous Approach (ICD-10-PCS; 2025-05-03)
PROC: B211YZZ Fluoroscopy of Multiple Coronary Arteries using Other Contrast (ICD-10-PCS; 2025-05-03)
DX: I21.4 Non-ST elevation (NSTEMI) myocardial infarction (principal); N30.00 Acute cystitis without hematuria; I50.22 Chronic systolic (congestive) heart failure; I34.0 Nonrheumatic mitral (valve) insufficiency; F03.90 Unspecified dementia, unspecified severity, without behavioral disturbance, psychotic disturbance, mood disturbance, and anxiety; E11.65 Type 2 diabetes mellitus with hyperglycemia; E83.42 Hypomagnesemia; I25.5 Ischemic cardiomyopathy; Z96.641 Presence of right artificial hip joint; Y83.1 Surgical operation with implant of artificial internal device as the cause of abnormal reaction of the patient, or of later complication, without mention of misadventure at the time of the procedure
CPT/HCPCS: 36415; 71045; 80048; 80053; 80061; 81001; 82962; 83036; 83735; 83880; 84439; 84443; 84481; 84484; 85025; 85610; 85730; 87086; 87426; 87804; 92920; 92972; 93005; 93306; 93458; 96365; 96372; 99152; G0378; J1815; J2250; J2470; Q9967